=== PATIENT | female | born 1960 | race Two or more races ===

== ENCOUNTER 2022-01-09 10:29 | Emergency (ER) | payer MEDICARE ==
[2022-01-09 14:04] LABS: BASOPHIL 0.4 % (0-2); EOSINOPHIL 5.1 % (0-5); HCT 35.2 % (37.0-47.0); HGB 11.4 g/dl (12.5-16.0); LYMPHOCYTE 15.9 % (15-48); MCH 27.8 pg (25.0-31.0); MCHC 32.4 g/dL (32.0-36.0); MCV 85.9 fL (78.0-100.0); MONOCYTE 3.1 % (0-12); MPV 10.3 fL (6.0-9.5); NEUTROPHIL 75.1 % (41-80); NRBC 0; PLT 231 K/uL (150-400); WBC 13.1 K/uL (4.0-10.5)
[2022-01-09 14:26] LABS: ALBUMIN 2.8 g/dL (3.4-5.0); BILIRUBIN - TOTAL 0.4 mg/dL (0.2-1.0); BUN/CREAT RATIO (CALC) 24.7 RATIO; CREATININE 0.77 mg/dL (0.51-0.95); GLOBULIN (CALCULATION) 4.5 g/dL; MAGNESIUM 1.7 mg/dL (1.8-2.4); TOTAL PROTEIN 7.3 g/dL (6.4-8.2)
== END 2022-01-09 17:47 | disposition other institution (70) ==
LOC: FER 10:29
PROVIDERS: Emergency Medicine
DX: I21.4 Non-ST elevation (NSTEMI) myocardial infarction (principal); I10 Essential (primary) hypertension; E11.9 Type 2 diabetes mellitus without complications; Z79.82 Long term (current) use of aspirin; Z79.84 Long term (current) use of oral hypoglycemic drugs; Z79.899 Other long term (current) drug therapy
CPT/HCPCS: 36415; 71045; 80053; 83735; 84484; 85025; 93005